=== PATIENT | male | born 1930 | race Caucasian/White ===

== ENCOUNTER 2017-10-19 10:35 | Inpatient (IN) | payer OTHER ==
[~2017-10-19] VITALS: Ht 160 cm; Wt 40.8 kg
[~2017-10-19 10:35] MED LIST: ATIVAN0.5 M1; DOLOGEN CAPLET1 EACH PO; MUCINEX100 MG/5 M; ORPH100T PO; PRILOSEC20 MG
[2017-10-19] MEDS ORDERED: CLONAZEPAM1 M1 (11:01)
== END 2017-10-21 19:57 | disposition expired | DRG 177 ==
LOC: ER 10:35 → MEDJ 18:25 → MEDI 18:25 → MEDJ 10-21 19:57
PROC: 3E0F7GC Introduction of Other Therapeutic Substance into Respiratory Tract, Via Natural or Artificial Opening (ICD-10-PCS; principal; 2017-10-19)
PROC: 4A033R1 Measurement of Arterial Saturation, Peripheral, Percutaneous Approach (ICD-10-PCS; 2017-10-19)
PROC: B246ZZZ Ultrasonography of Right and Left Heart (ICD-10-PCS; 2017-10-20)
PROC: 4A12X4Z Monitoring of Cardiac Electrical Activity, External Approach (ICD-10-PCS; 2017-10-20)
DX: J69.0 Pneumonitis due to inhalation of food and vomit (principal); J96.01 Acute respiratory failure with hypoxia; J47.1 Bronchiectasis with (acute) exacerbation; B37.0 Candidal stomatitis; D64.89 Other specified anemias; Z74.01 Bed confinement status; Z66 Do not resuscitate; R13.19 Other dysphagia; G30.1 Alzheimer's disease with late onset; F02.80 Dementia in other diseases classified elsewhere, unspecified severity, without behavioral disturbance, psychotic disturbance, mood disturbance, and anxiety; E86.0 Dehydration; B96.5 Pseudomonas (aeruginosa) (mallei) (pseudomallei) as the cause of diseases classified elsewhere